=== PATIENT | male | born 1995 | race Caucasian/White ===

== ENCOUNTER → 2017-07-18 | Outpatient (CLI) | payer BC | LOC: COL.RAD 16:15 | DX: R10.31 Right lower quadrant pain (principal); R10.32 Left lower quadrant pain; R10.2 Pelvic and perineal pain | CPT/HCPCS: Q9967 ==

== ENCOUNTER 2017-07-19 16:18 | Observation (INO) | payer BC ==
[~2017-07-19] VITALS: Ht 182.9 cm; Wt 89.3 kg
[2017-07-19 16:38] VITALS: BP 140/63; PULSE 80; TEMP 98.4
[2017-07-19 19:29] VITALS: BP 143/67; PULSE 90; TEMP 98.1
[2017-07-19 20:36] LABS: COLLECTION METHOD CLEAN CATCH
[2017-07-19 20:43] LABS: MUCOUS Present /lpf; PH 6 (5-8); SQUAMOUS EPITHELIAL None Seen /hpf; URINE APPEARANCE Clear; URINE BACTERIA None Seen /hpf; URINE BILIRUBIN Negative (NEGATIVE); URINE BLOOD Negative (NEGATIVE); URINE COLOR Yellow; URINE GLUCOSE Negative (NEGATIVE); URINE KETONE 1+ (NEGATIVE); URINE LEUKOCYTE ESTERASE Negative (NEGATIVE); URINE NITRATE Negative (NEGATIVE); URINE PROTEIN(semi-quant) Negative (NEGATIVE); URINE RBC 0-2 /hpf
[2017-07-20 00:18] VITALS: BP 141/73; PULSE 88; TEMP 99.2
[2017-07-20 04:12] VITALS: BP 134/79; PULSE 77; TEMP 98.3
[2017-07-20 06:59] LABS: HEMATOCRIT 45.3 % (42.0-52.0); HEMOGLOBIN 15.4 g/dl (13.5-18.0); MEAN CELL VOLUME 93 fl (80.0-100.0); MEAN CORPUSCULAR HEMOGLOBIN 32 pg (27.0-31.0); MEAN CORPUSCULAR HGB CONC 34 g/dl (33.0-37.0); MEAN PLATELET VOLUME 10.7 fl (7.4-10.4); PLATELET COUNT 226 K/mm3 (130-400); RED BLOOD COUNT 4.89 M/mm3 (4.20-5.60); REDCELL DISTRIBUTION WIDTH-CV 12.3 % (11.5-14.5)
[2017-07-20 07:13] LABS: CALCIUM 9.4 mg/dL (8.4-10.2); CREATININE, serum 0.96 mg/dL (0.66-1.25); POTASSIUM 4.1 mmol/L (3.4-5.0)
[2017-07-20 08:01] VITALS: BP 149/66; PULSE 78; TEMP 97.4
== END 2017-07-20 12:36 | disposition home or self-care (01) ==
LOC: MEDICAL 16:18
PROVIDERS: Surgery
DX: R10.30 Lower abdominal pain, unspecified (principal); R30.0 Dysuria; K62.89 Other specified diseases of anus and rectum; Z88.0 Allergy status to penicillin
CPT/HCPCS: G0378; G0379; J1956; J7120